=== PATIENT | female | born 1985 | race Two or more races ===

== ENCOUNTER 2025-07-07 08:41 | Outpatient (RCR) | payer MEDICAID, SELFPAY ==
[2025-07-07 09:34] LABS: HCG Qualitative,Urine Negative
--- NOTE | 2025-07-07 10:00 | XR_ITS ---
Examination: ROBERT, hepatobiliary radioisotope scan Gallbladder ejection fraction study. Date and time of exam: 07/07/2025, 12:02 p.m. INDICATION: Right upper quadrant pain rating to the back. Pain is intermittent for 3 months with nausea and vomiting. COMPARISON: None available at time of interpretation but per history, prior abdominal ultrasound report states fatty liver. Technique: 5.7 mCi of 99M Hepatolite administered. Serial imaging then obtained from immediate through 65 minutes. 1.9 mcg selective catheter Kinevac administered for gallbladder ejection fraction study. Findings: Radioisotope activity within the liver is reasonably homogenous. Gallbladder, common bile duct small bowel activity noted. Gallbladder ejection fraction is below normal at 19%. Impression: Patent cystic duct. Findings consistent with chronic cholecystitis with low gallbladder ejection fraction of 19%.
== END 2025-07-12 23:59 | disposition home or self-care (01) ==
LOC: SNUC 08:41
PROVIDERS: PCP Registered Nurse; Referring Provider Registered Nurse; Visit Provider Registered Nurse
DX: R93.89 Abnormal findings on diagnostic imaging of other specified body structures (principal); Z32.00 Encounter for pregnancy test, result unknown
CPT/HCPCS: 78227; 81025; A9537; J2805